=== PATIENT | male | born 1985 | race Caucasian/White ===

== ENCOUNTER 2022-12-13 01:08 | Emergency (ER) | payer BC, SELFPAY ==
--- NOTE | 2022-12-13 01:05 | ECG_ITS ---
APPROVED REPORT Exam: Resting ECG HR:88 bpm ECG Measurements Heart Rate 88 AXES RI 144 P 49 QRSd 88 QRS 74 QT 360 T 44 QTc 405 Conclusion SINUS RHYTHM NORMAL ECG UNCONFIRMED REPORT Electronically signed by : Spencer Mckeon MD 12/13/2022 16:52:55
[2022-12-13 01:10] VITALS: BP 122/93; PULSE 90; RESP 16; RESP 20; TEMP 36.5; O2SAT 98; BMI 25.4; BMI 26.3
--- NOTE | 2022-12-13 01:12 | XR_ITS ---
PROCEDURE INFORMATION: Exam: XR Chest Exam date and time: 12/13/2022 1:38 AM Age: 36 years old Clinical indication: Pain; Chest pressure; Additional info: Chest pain, reported pneumonia TECHNIQUE: Imaging protocol: Radiologic exam of the chest. Views: 1 view. COMPARISON: No relevant prior studies available. FINDINGS: Lungs: Unremarkable. No consolidation. Pleural spaces: Unremarkable. No pleural effusion. No pneumothorax. Heart/Mediastinum: Unremarkable. No cardiomegaly. Bones/joints: Unremarkable. IMPRESSION: No acute findings.
[2022-12-13 01:14] VITALS: BP 122/93; PULSE 89
[2022-12-13 01:15] VITALS: PULSE 90
--- NOTE | 2022-12-13 01:16 | HMH.EDGENADL ---
Discharge Plan Disposition Patient Disposition: Left Against Medical Advice Condition: Good Referrals Follow up/Referrals: Provider,Referral, [Primary Care Provider] - See instructions Activity Restrictions/Add. Instructions Additional Instructions/Restrictions: Please follow-up with your primary care provider. Please return to the emergency department if you develop any new or worsening symptoms or become concerned for your health. Clinical Impressions Clinical Impression: Chest pain Discharge ED Provider: Supa Desai Adult HPI General Chief complaint: Chest Pain Stated complaint: Short of Breath Time Seen by Provider: 12/13/22 01:10 Mode of Arrival: EMS Source of Information: Patient Limitations: No Limitations Description of Symptoms (Recalled from ER Triage Doc. by RN): 36 year old male with complaints of chest pain for a few weeks now, states he was diagnosed with pneumonia and tonight the pain has gotten worse with inspiration. 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 Reports chest pain is worse with deep breathing. He reports that he has had a couple episodes of hemoptysis in the past but none recently. He reports that he was diagnosed with pneumonia a month ago in [place] but was not prescribed any medications. He reports that his chest pain is chronic but worsening. He is a prior drug user but reports being sober for the last 13 months. No reported fevers at home. Related Data Allergies Allergy/AdvReac Type Severity Reaction Status Date / Time NO KNOWN ALLERGIES Allergy Uncoded 01/27/17 14:08 [facility] Disclaimer: The information contained in this section may have been updated after the patient was seen, as this information can be updated by other users. Social History Smoking Status: Current every day smoker alcohol intake: former current occupational status: unemployed Travel in the last 8 weeks: None ROS Obtained: Yes All systems reviewed & no additional complaints except as documented Physical Exam General General appearance: alert and in no apparent distress Head Head exam: atraumatic, normocephalic and other (Prior craniotomy scar noted) Eye Eye exam: Present normal appearance, PERRL and EOMI ENT ENT exam: Present normal oropharynx and normal external ear exam Neck Neck exam: Present normal inspection and full ROM Chest Chest inspection: Present normal inspection and symmetric chest wall rise; Absent tenderness Respiratory Respiratory exam: Present normal lung sounds bilaterally; Absent respiratory distress or wheezes Cardiovascular Cardiovascular exam: Present regular rate and normal rhythm Abdominal Exam Abdominal exam: Present soft; Absent distention, tenderness or guarding Extremities Exam Extremities exam: Present normal inspection; Absent edema or joint swelling Back Exam Back exam: Present normal inspection; Absent tenderness Neurological Exam Neurological exam: Present alert and oriented X3; Absent motor sensory deficit Psychiatric Psychiatric exam: Present normal mood and flat affect Skin Skin exam: Present warm, dry and normal color Lymphatic Lymphatic Findings: no adenopathy Medical Decision Making Medical Records Medical records reviewed: Yes I reviewed the patient's medical records. Demetrius Inquiry Pt receiving controlled substance: No Demetrius was queried for this patient: No Vital Signs: 12/13/22 01:10 12/13/22 01:14 12/13/22 01:15 Temperature 97.7 F Temperature Source Oral Pulse Rate 89 90 Pulse Rate [Radial] Respiratory Rate 16 Blood Pressure 122/93 H Blood Pressure [Right Arm] Blood Pressure Mean [Right Arm] Blood Pressure Source Blood Pressure Source [Right Arm] Blood Pressure Position Blood Pressure Position [Right Arm] 02 Sat by Pulse Oximetry 98 Oxygen Deliver
[2022-12-13 01:24] LABS: Chloride 108 mmol/L (98-107); Potassium 3.9 mmoL/L (3.5-5.1); Sodium 141 mmol/L (136-145)
[2022-12-13 01:26] LABS: Alanine Aminotransferase 39 U/L (12-78); Alkaline Phosphatase 84 U/L (38-126); Aspartate Amino Transferase 36 U/L (17-59); Blood Urea Nitrogen 21 mg/dl (9-20); Creatinine Clearance Estimated 162 mL/min (50-200); Estimated Glomerular Filt Rate 111 ml/min (>60); GFR (African American) 134 ML/MIN (>60)
[2022-12-13 01:27] LABS: Albumin Level 4.4 g/dl (3.5-5.0); Albumin/Globulin Ratio 1.4 (1.1-1.8); Anion Gap 10.9 mEq/L (5-15); Calcium 8.8 mg/dl (8.4-10.2); Carbon Dioxide 26 mmol/L (22.0-30.0); Globulin 3.2 g/dL (1.3-3.2); Glucose 98 mg/dl (74-100); Total Protein,Serum 7.6 g/dl (6.3-8.2)
[2022-12-13 01:29] LABS: Basophils # 0.1 K/mm3 (0-0.2); Basophils % 0.6 % (0.1-2.0); Eosinophils # 0.5 K/mm3 (0.0-0.4); Eosinophils % 4.4 % (0.1-12.0); Hematocrit 45.6 % (42.0-52.0); Hemoglobin 15.5 g/dL (14.1-18.0); Lymphocytes # 4.5 K/mm3 (0.7-4.5); Lymphocytes % 40.8 % (10-50); Mean Corpuscular HGB Conc 34.1 g/dL (31.8-35.4); Mean Corpuscular Hemoglobin 30.9 pg (27.0-31.2); Mean Corpuscular Volume 90.7 fl (80-94); Mean Platelet Volume 8.5 fl (7.4-10.4); Monocytes # 0.7 K/mm3 (0.1-1.0); Monocytes % 6.5 % (1.7-9.3); Neutrophils # 5.2 K/mm3 (1.8-7.8); Neutrophils % 47.7 % (37.0-80.0); Platelet Count 222 K/mm3 (142-424); Red Blood Count 5.02 M/mm3 (4.60-6.20); Red Cell Distribution Width 13.2 % (11.5-17.5); White Blood Count 10.9 K/mm3 (4.8-10.8)
[2022-12-13 01:38] LABS: Bilirubin,Total 0.1 mg/dl (0.2-1.3)
[2022-12-13 01:39] LABS: Troponin I < 0.01 ng/ml (0.00-0.034)
--- NOTE | 2022-12-13 01:45 | PC.NURSE ---
Patient requesting to leave AMA. He states he wants to leave and go outside and smoke, and just wants to go home. Mychal Mccabe called for transportation of patient back to facility. Staff states that current staffed employees dont have vehicles to transport patient until shift change around 0800. Patient informed of this and states that he will walk back to facility. Patient is alert and oriented x 4 and of sound mind to make all personal decisions. Patient signed AMA paperwork, and left ER.
[2022-12-13 02:00] VITALS: BP 00/00; PULSE 0; RESP 0; TEMP -17.7; TEMP 0; O2SAT 0
[2022-12-13 02:01] LABS: D-Dimer 0.66 ug/mL (0.0-0.5)
== END 2022-12-13 02:01 | disposition left against medical advice (07) ==
PROVIDERS: Emergency Provider Emergency Medicine
DX: R07.89 Other chest pain (principal); R06.02 Shortness of breath; F17.210 Nicotine dependence, cigarettes, uncomplicated
CPT/HCPCS: 71045; 80053; 84484; 85025; 85378; 93005; 96374; 96375; 99284; J2405

== ENCOUNTER 2022-12-13 05:31 | Emergency (ER) | payer SELFPAY ==
[2022-12-13 05:33] VITALS: BP 155/98; PULSE 98; RESP 20; TEMP 36.8; O2SAT 96; BMI 27.1
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
[2022-12-13 05:46] VITALS: BP 155/98; PULSE 98; RESP 20; TEMP 36.8; O2SAT 96
== END 2022-12-13 05:47 ==
PROVIDERS: Emergency Provider Emergency Medicine
DX: Z00.8 Encounter for other general examination (principal)
CPT/HCPCS: 99281

== ENCOUNTER 2022-12-19 22:43 | Emergency (ER) | payer SELFPAY ==
--- NOTE | 2022-12-19 22:40 | ECG_ITS ---
APPROVED REPORT Exam: Resting ECG HR:72 bpm ECG Measurements Heart Rate 72 AXES NJ 139 P 22 QRSd 96 QRS -7 QT 383 T 25 QTc 407 Conclusion SINUS RHYTHM NORMAL ECG UNCONFIRMED REPORT Electronically signed by : Spencer Mckeon MD 12/21/2022 08:40:33
[2022-12-19 22:44] VITALS: BP 118/80; PULSE 72; RESP 12; TEMP 36.8; O2SAT 98; BMI 24.4
[2022-12-19 22:54] VITALS: BP 118/80; PULSE 70; RESP 15; O2SAT 97
[2022-12-19 23:00] VITALS: BP 117/76; PULSE 72; RESP 18; O2SAT 96
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
[2022-12-19 23:15] VITALS: BP 128/83; PULSE 80; RESP 15; O2SAT 98
[2022-12-19 23:30] VITALS: BP 116/83; PULSE 85; RESP 13; O2SAT 98
--- NOTE | 2022-12-19 23:42 | XR_ITS ---
PROCEDURE INFORMATION: Exam: XR Chest Exam date and time: 12/20/2022 12:15 AM Age: 37 years old Clinical indication: Pain; Chest pressure; Additional info: Chronic cp, SOB TECHNIQUE: Imaging protocol: Radiologic exam of the chest. Views: 1 view. COMPARISON: CR XR CHEST PORTABLE 12/13/2022 1:38 AM FINDINGS: Lungs: Unremarkable. No consolidation. Pleural spaces: Unremarkable. No pleural effusion. No pneumothorax. Heart/Mediastinum: Unremarkable. No cardiomegaly. Bones/joints: Unremarkable. IMPRESSION: Stable chest x-ray with no acute disease.
[2022-12-20] VITALS: BP 124/83; PULSE 75; RESP 18; O2SAT 97
[2022-12-20 00:07] LABS: Basophils # 0.1 K/mm3 (0-0.2); Basophils % 0.8 % (0.1-2.0); Eosinophils # 0.5 K/mm3 (0.0-0.4); Eosinophils % 5.1 % (0.1-12.0); Hematocrit 45.6 % (42.0-52.0); Hemoglobin 15.6 g/dL (14.1-18.0); Lymphocytes # 4.1 K/mm3 (0.7-4.5); Lymphocytes % 43.3 % (10-50); Mean Corpuscular HGB Conc 34.3 g/dL (31.8-35.4); Mean Corpuscular Hemoglobin 31.7 pg (27.0-31.2); Mean Corpuscular Volume 92.6 fl (80-94); Mean Platelet Volume 8.4 fl (7.4-10.4); Monocytes # 0.4 K/mm3 (0.1-1.0); Monocytes % 4.4 % (1.7-9.3); Neutrophils # 4.4 K/mm3 (1.8-7.8); Neutrophils % 46.4 % (37.0-80.0); Platelet Count 233 K/mm3 (142-424); Red Blood Count 4.92 M/mm3 (4.60-6.20); Red Cell Distribution Width 13.2 % (11.5-17.5); White Blood Count 9.5 K/mm3 (4.8-10.8)
[2022-12-20 00:08] LABS: Chloride 106 mmol/L (98-107)
[2022-12-20 00:09] LABS: Sodium 139 mmol/L (136-145)
[2022-12-20 00:11] LABS: Alanine Aminotransferase 36 U/L (12-78); Alkaline Phosphatase 90 U/L (38-126); Aspartate Amino Transferase 38 U/L (17-59); Bilirubin,Total 0.2 mg/dl (0.2-1.3); Blood Urea Nitrogen 17 mg/dl (9-20); Creatinine Clearance Estimated 170 mL/min (50-200); Estimated Glomerular Filt Rate 128 ml/min (>60); GFR (African American) 155 ML/MIN (>60)
[2022-12-20 00:12] LABS: Albumin Level 4.5 g/dl (3.5-5.0); Albumin/Globulin Ratio 1.4 (1.1-1.8); Calcium 8.6 mg/dl (8.4-10.2); Carbon Dioxide 26 mmol/L (22.0-30.0); Globulin 3.3 g/dL (1.3-3.2); Glucose 99 mg/dl (74-100); Total Protein,Serum 7.8 g/dl (6.3-8.2)
[2022-12-20 00:15] VITALS: BP 109/72; PULSE 73; RESP 18; O2SAT 96
[2022-12-20 00:30] VITALS: BP 111/73; PULSE 72; RESP 16; O2SAT 96
[2022-12-20 00:31] LABS: Troponin I < 0.01 ng/ml (0.00-0.034)
[2022-12-20 00:34] LABS: D-Dimer < 0.25 ug/mL (0.0-0.5)
[2022-12-20 00:45] VITALS: BP 107/67; PULSE 68; RESP 16; O2SAT 96
[2022-12-20 01:10] VITALS: BP 121/86; PULSE 76; RESP 18; O2SAT 97
[2022-12-20 01:24] VITALS: BP 122/65; PULSE 72; RESP 16; TEMP 36.5; O2SAT 96
--- NOTE | 2022-12-20 01:51 | PC.NURSE ---
rec'd call from stan thomson to registration stating they have no way to get him back to them. requested we call dispatch.
== END 2022-12-20 01:25 | disposition home or self-care (01) ==
PROVIDERS: Emergency Provider Emergency Medicine
DX: R07.9 Chest pain, unspecified (principal); R00.0 Tachycardia, unspecified; R00.2 Palpitations; R06.81 Apnea, not elsewhere classified; R42 Dizziness and giddiness; F17.210 Nicotine dependence, cigarettes, uncomplicated
CPT/HCPCS: 71045; 80053; 84484; 85025; 85378; 93005; 93225; 99284

== ENCOUNTER 2022-12-24 13:54 | Emergency (ER) | payer SELFPAY ==
[2022-12-24 13:55] VITALS: BP 112/82; PULSE 98; RESP 20; TEMP 36.6; O2SAT 98; BMI 21.7
--- NOTE | 2022-12-24 14:46 | HMH.EDGENADL ---
Discharge Plan Disposition Patient Disposition: Home, Self-Care Chief Complaint: Headache Prescriptions Prescriptions: No Action No Known Home Medications Activity Restrictions/Add. Instructions Additional Instructions/Restrictions: Take Tylenol 1000 mg every 6 hours (4 times daily) and ibuprofen 400 mg every 6 hours (4 times daily) as needed with food and water to prevent GI upset and kidney damage. Call your family doctor to establish care for this visit to the emergency department and schedule follow-up within 48 hours to ensure improvement. If you have any worsening of your condition or any other concerning signs or symptoms, return to the emergency department or your primary care doctor for further evaluation. Clinical Impressions Clinical Impression: Migraine Discharge ED Provider: Dieter Fonseca General Adult HPI General Chief complaint: Headache Stated complaint: headache Time Seen by Provider: 12/24/22 13:54 Mode of Arrival: EMS Source of Information: Patient Limitations: No Limitations Description of Symptoms (Recalled from ER Triage Doc. by RN): pt to ed c/o headache for several hours. 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 History of Present Illness HPI narrative: 37-year-old male history of migraines presenting with migraine. Patient states that he does not take medications for them, but he gets a migraine every couple of weeks. Started 4 days prior, got worse a couple hours prior to arrival. Has not taken anything for it. No neurologic or vision complaints. Related Data Home Medications Medication Instructions Recorded Confirmed No Known Home Medications 12/19/22 12/19/22 Allergies Allergy/AdvReac Type Severity Reaction Status Date / Time No Known Allergies Allergy Unverified 12/24/22 14:34 [facility] Disclaimer: The information contained in this section may have been updated after the patient was seen, as this information can be updated by other users. Social History (Updated 12/13/22 @ 02:08 by Supa Desai MD) Smoking Status: Never smoker alcohol intake: former current occupational status: unemployed Travel in the last 8 weeks: None ROS Obtained: Yes All systems reviewed & no additional complaints except as documented Physical Exam General General appearance: alert and in no apparent distress Head Head exam: normocephalic and other (scar on right side of head fro previous surgery) Respiratory Respiratory exam: Absent respiratory distress or wheezes Cardiovascular Cardiovascular exam: Present regular rate and normal rhythm Neurological Exam Neurological exam: Present alert, oriented X3, CN II-XII intact, normal gait and motor sensory deficit Medical Decision Making Medical Records Medical records reviewed: Yes I reviewed the patient's medical records. Demetrius Inquiry Pt receiving controlled substance: No Demetrius was queried for this patient: No Vital Signs: 12/24/22 13:55 Temperature 97.9 F Temperature Source Oral Pulse Rate [Left Radial] 98 H Respiratory Rate 20 Blood Pressure [Right Arm] 112/82 Blood Pressure Mean [Right Arm] 92 02 Sat by Pulse Oximetry 98 Oxygen Delivery Method Room Air Orders (Tests/Meds): ED MEDICATIONS Discontinued Medications Generic Name Dose Route Start Last Admin Trade Name Freq PRN Reason Stop Dose Admin Hydroxyzine Pamoate 50 mg 12/24/22 14:32 12/24/22 14:36 Hydroxyzine Pamoate 25mg Capsule PO 12/24/22 14:33 Not Given ONCE ONE Ketorolac Tromethamine 30 mg 12/24/22 14:32 Ketorolac 30mg/Ml Vial IM 12/24/22 14:33 ONCE ONE Medical Decision Narrative: 37-year-old male history of migraines presenting with migraine. Patient states that he does not take medications for them, but he gets a migraine every couple of weeks. Started 4 days prior, got worse a couple hours prior to arrival. Has not taken anything for it. No neurologic or vision complaints. Pat
--- NOTE | 2022-12-24 15:38 | PC.NURSE ---
pt d/c and refused all vitals.
[2022-12-24 15:40] VITALS: BP 0/0; PULSE 0; RESP 0; TEMP -17.7; TEMP 0
== END 2022-12-24 15:42 | disposition home or self-care (01) ==
PROVIDERS: Emergency Provider Emergency Medicine
DX: R51.9 Headache, unspecified (principal)
CPT/HCPCS: 99283

== ENCOUNTER 2022-12-27 00:49 | Emergency (ER) | payer SELFPAY ==
[2022-12-27 00:49] VITALS: BP 130/78; PULSE 85; RESP 20; TEMP 36.9; O2SAT 97; BMI 24.4
--- NOTE | 2022-12-27 00:52 | ECG_ITS ---
APPROVED REPORT Exam: Resting ECG HR:81 bpm ECG Measurements Heart Rate 81 AXES MS 143 P 35 QRSd 86 QRS 62 QT 363 T 44 QTc 401 Conclusion SINUS RHYTHM NORMAL ECG UNCONFIRMED REPORT Electronically signed by : Spencer Mckeon MD 12/27/2022 11:42:35
--- NOTE | 2022-12-27 01:07 | HMH.EDGENADL ---
Discharge Plan Disposition Patient Disposition: Xfer Other Prescriptions Prescriptions: No Action No Known Home Medications Referrals Follow up/Referrals: Provider,Referral, [Primary Care Provider] - See instructions Activity Restrictions/Add. Instructions Additional Instructions/Restrictions: You were evaluated in the emergency department today. Your evaluation is reassuring here without any acutely concerning abnormalities on labs or EKG. Please follow-up with your primary care provider for further evaluation and management of your chronic symptoms. Return to the emergency department for new or worsening symptoms. Clinical Impressions Clinical Impression: Headache, Multiple complaints, Chest pain Instructions Patient Instructions: DI for Chronic Pain -- Adult Discharge ED Provider: Nelsy Syed General Adult HPI General Chief complaint: Dizziness Stated complaint: dizziness Time Seen by Provider: 12/27/22 00:56 Mode of Arrival: EMS Source of Information: Patient and EMS Limitations: No Limitations Description of Symptoms (Recalled from ER Triage Doc. by RN): Patient reports that he has not felt good all day and approximately 20 minutes prior to arrival began having dizziness and sensitivity to light with chest pressure, and feelings of general unwellness. History of Present Illness HPI narrative: This patient is a 37-year-old male who is well-known to the emergency department with history of TBI and psychiatric disorders presenting from [facility] for evaluation with concern for multiple complaints. He states that for a very long time now, he has had cognitive difficulties, including temporary memory loss, intermittent chest pain, intermittent abdominal pain, intermittent burning when he pees, and intermittent headaches. He states that every time he has been seen by his primary care provider for this, he has been sent to the ER. He notes that every time he has been evaluated in the ER for this, he has been sent home to follow-up with his primary care provider. He states that this has been going on for a very long time with no new features. Nothing seems to trigger his symptoms, and nothing seems to make it better or worse. On medical record review, he has been evaluated multiple times over the last 2 weeks for various symptoms and complaints, including chest pains and migraines. Related Data Home Medications Medication Instructions Recorded Confirmed No Known Home Medications 12/19/22 12/19/22 Allergies Allergy/AdvReac Type Severity Reaction Status Date / Time No Known Allergies Allergy Unverified 12/24/22 14:34 [facility] Disclaimer: The information contained in this section may have been updated after the patient was seen, as this information can be updated by other users. Social History Smoking Status: Current every day smoker alcohol intake: former current occupational status: unemployed Travel in the last 8 weeks: None ROS Obtained: Yes All systems reviewed & no additional complaints except as documented Physical Exam General General appearance: alert and in no apparent distress Head Head exam: atraumatic and normocephalic Eye Eye exam: Present normal appearance, PERRL and EOMI ENT ENT exam: Present normal exam, normal oropharynx, mucous membranes moist and normal external ear exam Neck Neck exam: Present normal inspection, full ROM and trachea midline; Absent tenderness Chest Chest inspection: Present normal inspection and symmetric chest wall rise; Absent tenderness Respiratory Respiratory exam: Present normal lung sounds bilaterally; Absent respiratory distress, wheezes, stridor or accessory muscle use Cardiovascular Cardiovascular exam: Present regular rate and normal rhythm Abdominal Exam Abdominal exam: Present soft; Absent distention, tenderness or guarding Extremities Exam Extr
[2022-12-27 01:14] LABS: Basophils # 0.1 K/mm3 (0-0.2); Eosinophils # 0.4 K/mm3 (0.0-0.4); Eosinophils % 4.5 % (0.1-12.0); Hematocrit 46.6 % (42.0-52.0); Hemoglobin 15.5 g/dL (14.1-18.0); Lymphocytes # 3.7 K/mm3 (0.7-4.5); Lymphocytes % 45.3 % (10-50); Mean Corpuscular HGB Conc 33.4 g/dL (31.8-35.4); Mean Corpuscular Hemoglobin 30.2 pg (27.0-31.2); Mean Corpuscular Volume 90.5 fl (80-94); Mean Platelet Volume 8.1 fl (7.4-10.4); Monocytes # 0.5 K/mm3 (0.1-1.0); Monocytes % 5.6 % (1.7-9.3); Neutrophils # 3.5 K/mm3 (1.8-7.8); Neutrophils % 43.5 % (37.0-80.0); Platelet Count 217 K/mm3 (142-424); Red Blood Count 5.15 M/mm3 (4.60-6.20); Red Cell Distribution Width 13.3 % (11.5-17.5); White Blood Count 8.1 K/mm3 (4.8-10.8)
[2022-12-27 01:21] LABS: Chloride 108 mmol/L (98-107)
[2022-12-27 01:22] LABS: Potassium 3.9 mmoL/L (3.5-5.1); Sodium 139 mmol/L (136-145)
[2022-12-27 01:24] LABS: Alanine Aminotransferase 46 U/L (12-78); Aspartate Amino Transferase 38 U/L (17-59); Blood Urea Nitrogen 19 mg/dl (9-20); Creatinine Clearance Estimated 149 mL/min (50-200); Estimated Glomerular Filt Rate 110 ml/min (>60); GFR (African American) 133 ML/MIN (>60)
[2022-12-27 01:25] LABS: Alkaline Phosphatase 86 U/L (38-126); Anion Gap 10.9 mEq/L (5-15); Bilirubin,Total 0.1 mg/dl (0.2-1.3); Calcium 8.8 mg/dl (8.4-10.2); Carbon Dioxide 24 mmol/L (22.0-30.0); Glucose 118 mg/dl (74-100); Lipase 86 U/L (23-300); Total Protein,Serum 7.3 g/dl (6.3-8.2)
[2022-12-27 01:38] LABS: Troponin I < 0.01 ng/ml (0.00-0.034)
--- NOTE | 2022-12-27 02:02 | PC.NURSE ---
Patient reports he is unable to provide a urine sample at this time. Patient states he had urinated just prior to arrival. Notified provider.
[2022-12-27 02:06] LABS: Albumin Level 4.4 g/dl (3.5-5.0); Albumin/Globulin Ratio 1.5 (1.1-1.8); Globulin 2.9 g/dL (1.3-3.2)
--- NOTE | 2022-12-27 02:19 | PC.NURSE ---
Urine collected and sent at this time.
[2022-12-27 02:22] LABS: Microscopic, Urine URINE MICROSCOPIC (MICROSCOPIC)
[2022-12-27 02:24] LABS: Appearance,Urine CLOUDY (Clear); Bilirubin,Urine Negative (Negative); Blood, Urine Negative (Negative); Color,Urine YELLOW (Yellow); Glucose,Urine (UA) Negative (Negative); Ketones,Urine Negative (Negative); Leukocyte Esterase,Urine Negative (Negative); Nitrate,Urine Negative (Negative); PH,Urine 7.5 (5.0-8.5); Protein,Urine Negative (Negative); Urobilinogen,Urine 0.2 EU/dl (0.2)
[2022-12-27 02:35] LABS: Amorphous Sediment,Urine 1+ /lpf; Bacteria,Urine 1+ /lpf; Squamous Epithelial Cell,Urine Occasional #/hpf (0-5); WBC,Urine Occasional #/hpf (0-3)
[2022-12-27 02:58] VITALS: BP 140/78; PULSE 85; RESP 18; TEMP 36.7; O2SAT 98
== END 2022-12-27 03:01 | disposition other institution (70) ==
PROVIDERS: Emergency Provider Emergency Medicine
DX: R07.9 Chest pain, unspecified (principal); R51.9 Headache, unspecified; R10.9 Unspecified abdominal pain; R42 Dizziness and giddiness; F17.210 Nicotine dependence, cigarettes, uncomplicated; Z87.820 Personal history of traumatic brain injury
CPT/HCPCS: 80053; 81001; 83690; 84484; 85025; 93005; 99283

== ENCOUNTER 2022-12-28 22:25 | Emergency (ER) | payer SELFPAY ==
--- NOTE | 2022-12-28 22:23 | HMH.EDGENADL ---
Discharge Plan Disposition Patient Disposition: Home, Self-Care Chief Complaint: Psychiatric Symptoms Prescriptions Prescriptions: No Action No Known Home Medications Activity Restrictions/Add. Instructions Additional Instructions/Restrictions: At this time it was felt you are safe to be discharged home. If new or worsening symptoms please do not hesitate to return the emergency department. Clinical Impressions Clinical Impression: Medical clearance for incarceration Discharge ED Provider: Sam Mercedes General Adult HPI General Chief complaint: Psychiatric Symptoms Stated complaint: SI Time Seen by Provider: 12/28/22 22:23 History of Present Illness HPI narrative: Patient is a 37-year-old male with no pertinent past medical history who presents emergency department for evaluation of medical clearance. [facility] which per protocol EMS was contacted and they transported him here for continued evaluation. Upon further questioning patient states that he is from [place], he is stranded [facility] and is currently finding the conditions that are unacceptable. He presented here in hopes to get a ride back to [place]. Patient denies suicidal ideation, homicidal ideation, auditory or visual hallucinations, ingestions, any acute complaint that would require evaluation at this time. In route vitals were within normal limits. Related Data Home Medications Medication Instructions Recorded Confirmed No Known Home Medications 12/19/22 12/19/22 Allergies Allergy/AdvReac Type Severity Reaction Status Date / Time No Known Allergies Allergy Unverified 12/24/22 14:34 [facility] Disclaimer: The information contained in this section may have been updated after the patient was seen, as this information can be updated by other users. Social History Smoking Status: Current every day smoker alcohol intake: former current occupational status: unemployed Travel in the last 8 weeks: None ROS Obtained: Yes Systems reviewed as appropriate & no additional complaints except as documented Physical Exam General General appearance: alert and in no apparent distress Head Head exam: atraumatic Eye Eye exam: Present PERRL ENT ENT exam: Present mucous membranes moist Neck Neck exam: Present normal inspection Chest Chest inspection: Present normal inspection and symmetric chest wall rise Respiratory Respiratory exam: Present normal lung sounds bilaterally; Absent respiratory distress Cardiovascular Cardiovascular exam: Present regular rate and normal rhythm Abdominal Exam Abdominal exam: Present soft Extremities Exam Extremities exam: Present normal inspection Neurological Exam Neurological exam: Present alert and normal gait Psychiatric Psychiatric exam: Present normal affect Skin Skin exam: Present warm and dry Medical Decision Making Demetrius Inquiry Pt receiving controlled substance: No Medical Decision Narrative: In summary patient is a 37-year-old male with past medical history described above who presents emergency department for evaluation of medical clearance. Patient is not suicidal, not homicidal, thoughts are organized, he is alert and oriented. Patient has no acute complaints that warrant evaluation at this time. Given this patient is medically cleared and is appropriate for discharge. Critical Care Critical Care Time Critical Care Time: No
[2022-12-28 22:25] VITALS: BP 129/90; PULSE 89; RESP 18; TEMP 36.6; O2SAT 99; BMI 23.7
--- NOTE | 2022-12-28 22:33 | PC.NURSE ---
Patient reports that he does not wish to stay at current living situation and local PD is involved to ensure patient safety.
[2022-12-28 22:42] VITALS: BP 120/78; PULSE 80; RESP 18; TEMP 36.7
== END 2022-12-28 22:48 | disposition home or self-care (01) ==
PROVIDERS: Emergency Provider Emergency Medicine
DX: Z00.8 Encounter for other general examination (principal)
CPT/HCPCS: 99281